=== PATIENT | female | born 1965 ===

== ENCOUNTER 2019-11-06 10:15 | Inpatient (IN) | payer OTHER ==
[~2019-11-06] VITALS: Ht 160 cm; Wt 81.6 kg
[~2019-11-06 10:15] MED LIST: ASPIR 8181 MG PO; EDARBYCLOR 40-1 EACH PO; IRON325 MG PO; LEVOTHYROXINE25 MCG PO
[2019-11-10] MEDS ORDERED: LEVO-T125 MCG PO (08:37)
[2019-11-11] MEDS ORDERED: ULTRACET PO (12:03)
== END 2019-11-11 13:45 | DRG 743 ==
LOC: OB/GYN 11-10 06:15 → O/R 11-10 06:15 → EDBD 11-10 10:15 → OB/GYN 11-10 13:54
PROVIDERS: ADMIT Obstetrics & Gynecology Gynecology; ATTEND Obstetrics & Gynecology Gynecology
PROC: 0UT9FZZ Resection of Uterus, Via Natural or Artificial Opening With Percutaneous Endoscopic Assistance (ICD-10-PCS; principal; 2019-11-10 07:00)
DX: N85.02 Endometrial intraepithelial neoplasia [EIN] (principal); D25.1 Intramural leiomyoma of uterus; D25.2 Subserosal leiomyoma of uterus

== ENCOUNTER 2019-11-28 18:49 | Inpatient (IN) | payer OTHER ==
[~2019-11-28] VITALS: Ht 160 cm; Wt 79.8 kg
[~2019-11-28 18:49] MED LIST changes: +LEVO-T125 MCG PO; +ULTRACET PO
[2019-11-28] MEDS ORDERED: LEVO-T125 MCG PO (19:06)
[2019-11-28] MEDS ORDERED: EDARBYCLOR 40-1 EACH PO (19:07)
[2019-11-30] MEDS ORDERED: MAXFE CAPLET1 EACH PO (06:57)
[2019-11-30] MEDS ORDERED: AUGMENTIN XR 11 EACH PO (06:57)
== END 2019-11-30 10:40 | disposition home or self-care (01) | DRG 920 ==
LOC: ER 18:49 → SEC-K 20:44 → OB/GYN 20:44 → O/R 21:23 → OB/GYN 21:36
PROVIDERS: ADMIT Obstetrics & Gynecology Gynecology; ATTEND Obstetrics & Gynecology Gynecology
PROC: 0UQG7ZZ Repair Vagina, Via Natural or Artificial Opening (ICD-10-PCS; principal; 2019-11-28 20:00)
DX: T81.32XA Disruption of internal operation (surgical) wound, not elsewhere classified, initial encounter (principal); R71.0 Precipitous drop in hematocrit; I10 Essential (primary) hypertension